=== PATIENT | female | born 1990 | race Caucasian/White ===

== ENCOUNTER 2024-11-09 12:34 | Emergency (ER) | payer OTHER, SELFPAY ==
--- NOTE | ~2024-11-09 | XR_ITS ---
XR lumbar spine 2-3V 11/09/2024 14:44 Indication: Low back pain Procedure: 3 views lumbar spine Comparison: No prior studies for comparison. Findings: Normal lumbar lordosis. Vertebral body heights are maintained. No significant disc narrowing. Pedicles intact. Sacral foramen are symmetric. There are cholecystectomy clips. Impression: 1: No significant abnormality of the lumbar spine. Reviewed, dictated and finalized at location O. Impression: 1: No significant abnormality of the lumbar spine.
--- OUTSIDE RECORDS SUMMARY | 2024-11-09 12:42 | XMS_ITS | Clinical Summary ---
Author Organization [facility] Address [address] [place] [address] Care Team Providers Care Vice President For Instruction Name Role Phone No, Physician Primary Care Provider [phone] Jason Carpenter MD Unavailable [phone] Massimo Ordoñez MD Unavailable [phone] Allergies No known active allergies Medications metroNIDAZOLE (FLAGYL) 500 mg tablet One tablet by mouth twice daily, no alcohol. 14 tablet 3 Active HYDROcodone-ewa taminophen (NORCO) 5-325 mg per tabletIndicatio ns:Pain Take 1-2 tablets by mouth every 4 (four) hours as needed for pain Do not exceed 8 tablets/day. 12 tablet 4 Active levonorgestreL (Mirena) IUD Take 1 device as needed by intrauterine route as directed. 5 Active albuterol HFA (PROVENTIL HFA,VENTOLIN HFA,PROAIR HFA) 90 mcg/actuation inhalerIndicati ons:Shortness of breath Inhale 2 puffs every 4 (four) hours as needed for wheezing or shortness of breath 1 each 5 Active azithromycin (ZITHROMAX) 250 mg tabletIndicatio ns:Acute URI Take two tabs first day, then one tab daily x 4 days 6 tablet 5 Active benzonatate (TESSALON) 200 mg capsuleIndicati ons:Acute URI Take 1 capsule (200 mg total) by mouth 3 (three) times a day as needed for cough 42 capsule 5 Active Active Problems Problem Noted Date Diagnosed Date Complex cyst of left ovary 05/21/2020 Overview (07/24/2021): Ultrasound 05/19/20 at 32 weeks: 1.4 x 1.3 x 1.7 cm complex left ovarian cyst. Ovaries appeared WNL during laparoscopy 06/2021. History of loop electrosurgi farhan excision procedure (LEEP) of cervix affecting in second trimester 02/01/2020 Resolved Problems Problem Noted Date Diagnosed Date Resolved Date Sterilization 05/02/2021 07/24/2021 Overview (05/02/2021): Added automatically from request for surgery [id number] Herpes simplex type 1 antibody positive 04/25/2020 07/24/2021 High grade squamous intraepi thelial lesion on cytologic smear of cervix (HGSIL) 02/01/20202021 Overview (02/01/2020): JUSTINE 3 removed by LEEP in 2018. Rh negative status during 01/05/2020 07/24/2021 Malpositioned IUD 04/12/2019 04/23/2020 Overview (02/01/2020): Added automatically from request for surgery [id number]; hysteroscopic removal by Dr. Carpenter. Immunizations Immunization Administration Dates Next Due MMR 07/09/2020 Tdap 05/16/2020 Surgical History Surgery Date Site/Laterality Comments CHOLECYSTECTOMY CERVICAL BIOPSY W/ LOOP ELEC TRODE EXCISION OTHER SURGICAL HISTORY 04/14/2019 IUD removal in OR SALPINGECTOMY 07/11/2021 Bilateral Medical History Medical History Date Comments Abnormal Pap smear of cervix Anemia Family History Medical History Relation Name Comments Diabetes Father Diabetes Paternal Grandfather Relation Name Status Comments Father Alive Mother Alive Paternal Grandfather Social History Tobacco Use Types Packs/Day Years Used Date Smoking Tobacco: Some Days Vaping Smokeless Tobacco: Never Tobacco Cessation:Ready to Q uit: Not Asked; Counseling Given: Not Answered Alcohol Use Standard Drinks/Week Comments Not Currently 0 (1 standard drink = 0.6 oz pur e alcohol) occasionally AUDIT-C Answer Date Recorded Q1: How often do you have a drink containing alc ohol? Never 07/04/2021 Average Number of Drinks Not on file 022 Frequency of Binge Drinking Not on file 06/16 PHQ-2 Answer Date Recorded PHQ-2 Total Score (If total score is 3 or more points, staff should administer the PHQ-9) 0 01/05/2020 Personal Safety Answer Date Recorded Have you ever been in or are you currently in a harmful physical or emotional relationship or is someone making you feel afraid or unsafe? Denies 05/20/2023 Comments No Sex and Gender Information Value Date Recorded Sex Assigned at Not on file Legal Sex Female 11:28 PM WET END HELPER Gender Identity Not on file Sexual Orientation Not on file Obstetrics History Para Term AB IAB SAB Ectopic Multiple Livin g Live Births 3 3 3 0 3 3 Date Outcome GA Total Labor Labor/2nd/3rd Weight Sex Type Anes PTL Silvana A1 A5 Name Clin 2006 Term 38w 0d 3.629 kg (8 lb) F Vag-S pont Epidur al Livin g 2008 Term 37w 0d M Vag-S pont Epidur al Livin g 2020 Term 39w 0d 4h 33m 4h 21m/0h 03m/0h 09m 3.918 kg (8 lb 10.2 oz) M Vag-S pont Spinal N Livin g 8 9 TORRES PETER , Massimo Schaefer MD Complications:None Delivery Location:This [facility] ([facility]) Last Filed Vital Signs Vital Sign Reading Time Taken Comments Blood Pressure 102/60 03/17/2024 11:11 AM WET END HELPER Pulse 68 03/17/2024 11:11 AM WET END HELPER Temperature 36.6 C (97.9 F) 03/17/2024 11:11 AM WET END HELPER Respiratory Rate 16 03/17/2024 11:11 AM WET END HELPER Oxygen Saturation 97% 03/17/2024 11:11 AM WET END HELPER Inhaled Oxygen Concentration - - Weight 69.9 kg (154 lb) 03/17/2024 11:11 AM WET END HELPER Height 175.3 cm (5' 9) 03/17/2024 11:11 AM WET END HELPER Body Mass Index 22.74 03/17/2024 11:11 AM WET END HELPER Plan of Treatment Health Maintenance Due Date Last Done Comments Hepatitis B Screening 09/07/2007 Regular Well Visit/Exam 18-64 09/07/2007 Pneumococcal vaccine <65 (1 of 2 - PCV) 2008 HPV Vaccines (1 - 3-dose SCDM series) 2016 Varicella Vaccines (2 of 2 - 13+ 2-dose series) 08/06/2020 06/14/2015 Cervical Cancer Screening 01/04/2021 01/05/2020 Depression Screening 01/04/2021 01/05/2020 Influenza Vaccine (#1) 2024 DTaP/Tdap/Td Vaccine (3 - Td or Tdap) 05/16/203004/2020, 10/16/2015 Hepatitis C Screening Completed 01/05/2020 Procedures Procedure Name Priority Date/Time Associated Diagnosis Comments HEPATITIS C ANTIBODY Routine 01/05/2020 10:51 AM CDT care, subsequent , second trimester PAP ONLY Routine 01/05/2020 10:43 AM CDT from Last 3 Months or Most Recently Relevant to Health Maintenance Results * Hepatitis C antibody (01/05/2020 10:51 AM CDT) Hep C Ab Nonreactive Nonreactive DIVYA MANDEL (OTIS) Comment: Interpretive Data Nonreactive: Antibodies to HCV not detected. Does NOT exclude the possibility of recent exposure to HCV. Equivocal: Equivocal for HCV antibodies. Supplemental molecular testing will be automatically performed to determine infection status in accordance with current CDC screening recommendations. Reactive: Positive for HCV antibodies. This may represent current or past HCV infection. Supplemental molecular testing will be automatically performed to determine current infection status in accordance with current CDC screening recommendations. Interpretive data was last revised on 2019. Testing performed by: [facility], [address] [place] [address], [place]., [address] Blood specimen (specimen) 01/05/2020 10:51 AM CDT 01/05/2020 4:59 PM CDT Zarina Lamb NP LAB MICROBIOLOGY - GENERAL ORDER MANUELA Edited Result - Final DIVYA MANDEL (JACOB) 1 [facility] Department [place] [address] * Pap Only (01/05/2020 10:43 AM CDT) CLINICAL INFORMATION: Wilfredo CrowdZoneKritsi [place] Comment: HX OF ABN LMP Wilfredo Fairchild Comment:10/08/2019 Previous Pap Wilfredo Fairchild Comment:INFORMATION NOT PROV IDED Prev. Bx Wilfredo Fairchild Comment:INFORMATION NOT PROV IDED SOURCE: Wilfredo CrowdZoneKristi Fairchild Comment:Cervix, Endocervix Pap, specimen adequacy Wilfredo Fairchild Comment: Satisfactory for evaluation. Endocervical/transformation zone component present. HPV interp Wilfredo Fairchild Comment:Negative for intraep ithelial lesion or malignancy. Infection: Wilfredo Fairchild Comment: Shift in vaginal timothy suggestive of bacterial vaginosis. Nuclear Instructor Que st Isacc Fairchild Comment: TMK, CT(ASCP) CT screening location: [facility] [place] [address] Comment Wilfredo CrowdZoneKristi Fairchild Comment: EXPLANATORY NOTE: The Pap is a screening test for cervical cancer. It is not a diagnostic test and is subject to false negative and false positive results. It is most reliable when a satisfactory sample, regularly obtained, is submitted with relevant clinical findings and history, and when the Pap result is evaluated along with historic and current clinical information. 01/05/2020 10:4 3 AM CDT 01/06/2020 3:24 AM CDT us Zarina Lamb NP LAB CYTOLOGY ORDERABLES Final Re sult WILFREDO [employer] [id number] [address] [place] [id number] from Last 3 Months or Most Recently Relevant to Health Maintenance Insurance [employer] [facility] [employer] ACC[employer] OOS [employer] OOS Member Subscriber Plan / Payer ( fective 2021-Present) Name:Alexandru Manzano Relation to Subscriber:Self Name:Alexandru Manzano Payer ID:[id number] (NAIC) Type:STEPHANIE TAMEZ Address: [facility] [id number] [address] OPEN ACCESS Advance Directives For more information, please contact: [phone] * Full Code (Latest Code Status on File) Date Activated Date Inactivated Comments 07/07/2020 6:48 AM 07/09/2020 4:20 PM Full CPR in case of cardiopulmonary arrest Care Teams Vice President For Instruction Relationship Specialty Start Date End Date No, Physician PCP - General 07/31/16 Jason Carpenter MD [address] [place] [address] DR KASANDRA Barnes [address] [place] [address] [facility] 04/14/19 Massimo Ordoñez MD [address] [place] [address] [address] [place] [address] [facility] 07/11/21
[2024-11-09 12:45] VITALS: BP 119/78; PULSE 65; RESP 16; TEMP 36.6; O2SAT 100
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
== END 2024-11-09 15:00 | disposition home or self-care (01) ==
PROVIDERS: Emergency Provider Nurse Practitioner
DX: S39.012A Strain of muscle, fascia and tendon of lower back, initial encounter (principal); X50.0XXA Overexertion from strenuous movement or load, initial encounter; G89.29 Other chronic pain
CPT/HCPCS: 72100; 99203; G0463